=== PATIENT | female | born 1980 | race Caucasian/White ===

== ENCOUNTER → 2016-05-17 | Outpatient (CLI) | payer OTHER ==
[~2016-05-17] MED LIST: ADVIL200 M2 PO; ASPIRIN325 MG PO; ATIVAN1 MG PO; BIRTH CONTROL PO; CELEXA20 MG PO; CELEXA40 MG PO; COLACE100 MG PO; DIFLUCAN150 MG PO; FLEXERIL10 MG PO; HYDROCODONE-IB1 EAC3 PO; IMITREX6 MG/0.51 SUBCUT; MIRALAX17 GM PO; MORPHINE SULFAT15 MG PO; MOTRIN IB200 MG PO; MS CONTIN15 MG PO; NECON 1-35-281 EACH PO; NEURONTIN100 MG PO; NEXIUM40 MG PO; NORCO 325-7.5 M1 TAB PO; NORCO 7.5-3251 EACH PO; PRILOSEC20 MG PO; PRINIVIL10 MG PO; SAXENDA3 MG/0.5 M INJECT; SYNTHROID112 MCG PO; SYNTHROID125 MCG PO; TOPAMAX25 MG PO; ULTRAM50 MG PO; ZOFRAN4 MG/5 ML PO
== END | disposition short-term general hospital (02) ==
LOC: CLNEUR 08:15
DX: Z48.89 Encounter for other specified surgical aftercare (principal)

== ENCOUNTER → 2016-07-26 | Outpatient (CLI) | payer OTHER | END | disposition short-term general hospital (02) | LOC: CLVASC 08:58 → CLNEUR 08:58 → CLVASC 14:40 | DX: Z47.89 Encounter for other orthopedic aftercare (principal) ==